=== PATIENT | male | born 1975 | race Caucasian/White ===

== ENCOUNTER 2021-04-17 06:22 | Emergency (ER) | payer OTHER, SELFPAY ==
--- NOTE | ~2021-04-17 | XR_ITS ---
EXAMINATION: XR chest 2V DATE: 04/17/2021 06:47 INDICATION: Chest pain. TECHNIQUE: Frontal and lateral views of the chest were obtained. COMPARISON: Chest 2 views 02/05/2006 FINDINGS: The chest demonstrates clear lungs without pneumonia, pleural effusion, or pneumothorax. Th e heart size is normal. IMPRESSION: 1. No acute cardiopulmonary disease. Reviewed, dictated and finalized at location A. MBLER RUBBER FOOTWEAR
[2021-04-17 06:29] VITALS: BP 168/102; PULSE 58; PULSE 69; RESP 14; RESP 18; O2SAT 100
[2021-04-17 06:30] VITALS: PULSE 54; RESP 11; O2SAT 100
--- NOTE | 2021-04-17 06:33 | ECG_ITS ---
Measurements Intervals [place] Rate: 53 P: 73 [place]: 116 QRS: 45 QRSD: 112 T: 22 QT: 437 QTc: 412 Interpretive Statements SINUS BRADYCARDIA INTRAVENTRICULAR CONDUCTION DELAY BASELINE ARTIFACT- I, II, III, AVR, AVL, AVF BORDERLINE ECG Electronically Signed On 04-17-2021 7:34:08 AIRBORNE SENSOR SPECIALIST by Neno Vivar D.O.
--- NOTE | 2021-04-17 06:34 | ED.ARRPALP ---
HPI - Arrhythmia/Palpitations General Chief Complaint: Arrhythmia/Palpitations Stated Complaint: heart skipping beats Time Seen by Provider: 04/17/21 06:32 Source: patient Mode of arrival: ambulatory Limitations: no limitations History of Present Illness HPI narrative: Patient is a 46-year-old male complaining of palpitations, skipping beats , accompanied by shortness of breath, started 1 week ago but today claims that it is worse. Patient denies any chest pain, abdominal pain, nausea, vomiting, diaphoresis, fever or chills. Related Data Home Medications Medication Instructions Recorded Confirmed diphenhydramine HCl 25 mg tablet 25 mg PO QHS 05/01/20 05/01/20 doxylamine succinate 25 mg tablet 25 mg PO QHS PRN 05/01/20 05/01/20 Allergies Allergy/AdvReac Type Severity Reaction Status Date / Time No Known Allergies Allergy Mild Verified 05/01/20 10:56 Review of Systems Review of Systems: All systems reviewed & are unremarkable except as noted in HPI and below Constitutional: Constitutional: Denies body ache(s), Denies chills, Denies excessive sweating, Denies fatigue, Denies fever(s), Denies headache(s), Denies lethargy, Denies malaise, Denies weakness and Denies weight loss Eyes: Eyes: Denies blurry vision, Denies change in vision and Denies loss of vision ENT: Denies dizziness, Denies ear discharge, Denies headache(s), Denies lip swelling, Denies epistaxis, Denies nasal congestion, Denies neck pain, Denies throat swelling and Denies tongue swelling Cardiovascular: Cardiovascular: Denies chest pain, Denies chest pain at rest, Denies chest pain with activity, Denies diaphoresis, Denies edema, Denies irregular heart rhythm, Denies lightheadedness and Denies dyspnea on exertion Respiratory: Respiratory: Denies chest congestion, Denies cough, Denies hemoptysis and Denies dyspnea on exertion Gastrointestinal: Gastrointestinal: Denies abdominal pain, Denies melena, Denies hematochezia, Denies diarrhea, Denies nausea, Denies vomiting and Denies hematemesis Musculoskeletal: Musculoskeletal: Denies abnormal gait, Denies deformity, Denies joint swelling, Denies limited range of motion, Denies neck pain and Denies numbness Neurologic: Denies Abnormal speech present, Denies abnormal gait, Denies confusion, Denies dizziness, Denies headache(s), Denies focal weakness, Denies loss of vision, Denies numbness, Denies Other visual disturbances, Denies Sensory deficit (Neuro) and Denies weakness Psychiatric: Psychiatric: Denies confusion, Denies depression, Denies auditory hallucinations, Denies homicidal ideation and Denies suicidal ideation Endocrine: Endocrine: Denies cold intolerance, Denies excessive sweating, Denies fatigue, Denies heat intolerance and Denies palpitations Hematologic/Lymphatic: Hematologic/Lymphatic: Denies easy bleeding and Denies easy bruising Allergic/Immunologic: Allergic/Immunologic: Denies lip swelling, Denies throat swelling and Denies tongue swelling PMFSH Family History Family History Father Hypertension Depression Heart disease Mother Depression Sibling Depression Cerebrovascular accident Grandparent Cancer Grandparent Hypertension Depression Social History Social History Smoking status: Never smoker Alcohol intake: never Substance use: never Exam Const: General: cooperative, healthy appearing, comfortable, no acute distress, well developed, alert and awake; No confusion Orientation/consciousness: oriented to person, oriented to place, oriented to time, patient oriented x3 and No confusion Limitations: no limitations HENMT: Head: normal to inspection, normocephalic and atraumatic Ears: hearing grossly normal bilaterally, TM normal on the right and TM normal on the left General nose exam: Normal external nose present, Normal nares present and No nasal discharge pre
[2021-04-17 06:45] LABS: Basophils Percent Auto 0.5 % (0.2-1.2); Eosinophils Absolute Auto 0.5 K/mm3 (0-0.3); Eosinophils Percent Auto 5.9 % (0-4.4); Hematocrit 44.5 % (42.0-52.0); Immature Granulocyte Absolute 0.01 K/mm3 (0.00-0.031); Immature Granulocyte Percent A 0.1 % (0-0.5); Lymphocytes Absolute Auto 3.76 K/mm3 (0.9-3.2); Lymphocytes Percent Auto 43.8 % (18.3-44.2); Mean Corpuscular HGB Conc 33.7 g/dl (32-36); Mean Corpuscular Hemoglobin 29.2 pg (26-34); Mean Corpuscular Volume 86.7 fl (80-100); Mean Platelet Volume 9.5 fl (7.4-10.4); Monocytes Absolute Auto 0.7 K/mm3 (0.1-0.6); Monocytes Percent Auto 8.5 % (2.6-8.5); Neutrophils Absolute Auto 3.5 K/mm3 (1.3-6.7); Neutrophils Percent Auto 41.2 % (45.5-73.1); Platelet Count Result 271 k/mm3 (150-375); Red Blood Count 5.13 M/mm3 (4.6-6.20); Red Cell Distribution Width 12.2 % (11.5-14.5); White Blood Count 8.6 K/mm3 (4.5-10.0)
[2021-04-17] MEDS: ASPIRIN 81 MG CHEWABLE TABLET 324 MG PO (06:47)
[2021-04-17 06:56] LABS: Prothrombin Time 12.6 Seconds (11.1-14.7)
[2021-04-17 06:57] LABS: Partial Thromboplastin Time 29.8 SECONDS (22.3-36.8)
[2021-04-17 07:05] VITALS: PULSE 67; RESP 13; O2SAT 97
[2021-04-17 07:14] LABS: Alanine Aminotransferase 22 U/L (4-50); Albumin Level 5.2 g/dL (3.5-5.1); Alkaline Phosphatase 64 U/L (38-126); Anion Gap 11 mmol/L (8-16); Aspartate Amino Transferase 29 U/L (17-59); Bilirubin,Total 0.8 mg/dL (0.2-1.3); Blood Urea Nitrogen 19 mg/dL (9-20); Calcium 9.9 mg/dL (8.4-10.2); Carbon Dioxide 27 mmol/L (22-30); Chloride 103 mmol/L (98-107); Estimated CRCL calculation 99 ml/min; Estimated Glomerular Filt Rate > 60; Glucose 113 mg/dL (65-110); Lipase 101 U/L (23-300); Potassium 4.6 mmol/L (3.4-5.0); Sodium 141 mmol/L (137-145)
[2021-04-17 07:25] LABS: Troponin I < 0.012 ng/mL (0.000-0.034)
--- NOTE | 2021-04-17 07:28 | PC.NURSE ---
pt noted feeling of palpitations. rhythm change noted on monitor. edp aware.
[2021-04-17 07:48] LABS: D Dimer < 0.27 ug/mL (<0.48)
[2021-04-17 09:05] VITALS: BP 116/82; PULSE 69; RESP 16; O2SAT 98
[2021-04-17 09:58] LABS: Troponin I < 0.012 ng/mL (0.000-0.034)
[2021-04-17 10:35] VITALS: BP 142/95; PULSE 63; RESP 16; O2SAT 99
== END 2021-04-17 10:39 | disposition home or self-care (01) ==
PROVIDERS: Emergency Provider Emergency Medicine; PCP Emergency Medicine
DX: R00.2 Palpitations (principal); R00.1 Bradycardia, unspecified; I45.9 Conduction disorder, unspecified
CPT/HCPCS: 36415; 71046; 80053; 83690; 84443; 84484; 85025; 85380; 85610; 85730; 93005; 99284; A9270

== ENCOUNTER 2022-02-03 19:29 | Emergency (ER) | payer OTHER, SELFPAY ==
[2022-02-03] VITALS (7 sets, daily range): BP systolic 133–159; BP diastolic 84–96; PULSE 52–62; RESP 12–18; TEMP 36.4; O2SAT 97–100
--- NOTE | ~2022-02-03 | CT_ITS ---
EXAMINATION: CT brain wo con DATE: 02/03/2022 20:11 INDICATION: vertigo . TECHNIQUE: Computed tomography (CT) of the head was performed without intravenous contrast. The mA wa s adjusted according to patient size. Iterative reconstruction technique was employed. The dose-lengt h product was 605.33 mGy-cm. COMPARISON: None FINDINGS: No acute intracranial hemorrhage or extra-axial fluid collection. No hydrocephalus, mass, or herniation. No acute ischemic infarct. Unremarkable dural venous sinus attenuation. No acute osseous abnormality. Mucosal thickening in the right sphenoid and frontal sinuses. More pronounced mucosal thickening with aerated secretions in the ethmoid air cells. The remaining aerated spaces are clear. IMPRESSION: No acute intracranial process. Paranasal sinus findings may indicate acute sinusitis in the appropria te conical context. Reviewed, dictated and finalized at location K. T BASIC STUDIES TEACHER IMPRESSION: No acute intracranial process. Paranasal sinus findings may indicate acute sinu sitis in the appropriate conical context.
--- NOTE | 2022-02-03 19:46 | ECG_ITS ---
Measurements Intervals [place] Rate: 56 P: 61 [place]: 150 QRS: 28 QRSD: 112 T: 19 QT: 438 QTc: 423 Interpretive Statements SINUS BRADYCARDIA MODERATE INTRAVENTRICULAR CONDUCTION DELAY [110+ ms QRS DURATION] COMPARED TO ECG 04/17/2021 06:32:07 NO SIGNIFICANT CHANGES Electronically Signed On 02-04-2022 11:15:34 PLANNING ANALYST by Isabela Pagan M.D.
--- NOTE | 2022-02-03 19:59 | ED.DIZZY ---
HPI - Dizziness General Chief Complaint: Dizziness Stated Complaint: dizziness Time Seen by Provider: 02/03/22 19:47 History of Present Illness HPI Narrative: 47-year-old male presenting the emergency department for evaluation of vertigo and dizziness. 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 Patient states afterwards he began having severe vertigo symptoms. Patient states the symptoms are worsened when turning his head but does improve when he closes his eyes. Patient denies any prior history of CVA. Patient states he is also been having increased difficulty with sleeping due to anxiety. Patient states he is going to schedule follow-up with his primary care physician for the anxiety. Patient denies any associated numbness or weakness. Patient does have associated nausea. Related Data Home Medications Medication Instructions Recorded Confirmed diphenhydramine HCl 25 mg tablet 25 mg PO QHS 05/01/20 05/01/20 (Allergy (diphenhydramine)) doxylamine succinate 25 mg tablet 25 mg PO QHS PRN 05/01/20 05/01/20 Allergies Allergy/AdvReac Type Severity Reaction Status Date / Time No Known Allergies Allergy Mild Verified 02/03/22 19:33 Review of Systems Review of Systems: CONSTITUTIONAL: Denies fever, chills, or sweats. EYES: Denies visual changes, redness, or discharge. ENT: Denies rhinorrhea, congestion, sore throat, or otalgia. CARDIOVASCULAR: Denies chest pain, palpitations, or edema. RESPIRATORY: Denies cough or dyspnea. GASTROINTESTINAL: Denies abdominal pain, nausea, vomiting, or diarrhea. GENITOURINARY: Denies dysuria or hematuria. SKIN: Denies rash or itching. MUSCULOSKELETAL: Denies back pain, joint pain, or myalgia. NEUROLOGIC: Vertigo, see HPI PMFSH Family History Family History Father Hypertension Depression Heart disease Mother Depression Sibling Depression Cerebrovascular accident Grandparent Cancer Grandparent Hypertension Depression Social History Social History Smoking status: Never smoker Alcohol intake: never Substance use: never Exam Narrative: APPEARANCE: Well appearing, no pain, no distress, well-nourished. HEAD: normocephalic, atraumatic. EYES: PERRLA/EOMI, conjunctivae clear. NOSE: Normal no drainage EARS:TMS clear with good light reflex. THROAT: Pharynx clear, no exudate. NECK: Supple. No adenopathy, no masses. RESPIRATORY: Airway patent, respirations nonlabored. Clear to auscultation bilaterally, no rales, rhonchi, wheezing. CARDIOVASCULAR: Regular rate and rhythm without murmurs rubs or gallops. ABDOMINAL: Soft, nontender, nondistended, normal bowel sounds MUSCULOSKELETAL: Moves all extremities. Strength/ROM intact, No edema, No calf tenderness. NEURO: Alert. Cranial nerves II through XII intact. Grossly intact. Normal strength reflexes. Vertigo was induced when turning the patient's head. Symptoms are improved when closing his eyes. SKIN: Warm, dry. Normal Color Course Course Emergency Course: Patient did have a negative head CT. Patient did feel improved with meclizine. Patient was provided meclizine and for the next with his primary care physician. Patient was also encouraged to follow-up with neurology. Vital Signs Vital signs: Vital Signs Temperature 97.6 F 02/03/22 19:30 Pulse Rate 62 02/03/22 19:30 Respiratory Rate 18 02/03/22 19:30 Blood Pressure 155/88 H 02/03/22 19:30 Pulse Oximetry 100 02/03/22 19:30 Oxygen Delivery Room Air 02/03/22 19:30 Temperature 97.6 F 02/03/22 19:30 Pulse Rate 58 L 02/03/22 21:31 Respiratory Rate 15 02/03/22 21:31 Blood Pressure 138/88 02/03/22 21:31 Pulse Oximetry 97 02/03/22 21:31 Oxygen Delivery Room Air 02/03/22 19:30 MDM - Dizziness Lab Data
[2022-02-03 20:02] LABS: Basophils Percent Auto 0.6 % (0.2-1.2); Eosinophils Absolute Auto 0.3 K/mm3 (0-0.3); Eosinophils Percent Auto 4.6 % (0-4.4); Hematocrit 40.7 % (42.0-52.0); Hemoglobin 13.9 g/dL (14.0-18.0); Immature Granulocyte Absolute 0.01 K/mm3 (0.00-0.031); Immature Granulocyte Percent A 0.1 % (0-0.5); Lymphocytes Absolute Auto 3.34 K/mm3 (0.9-3.2); Mean Corpuscular HGB Conc 34.2 g/dl (32-36); Mean Corpuscular Hemoglobin 29.4 pg (26-34); Mean Platelet Volume 9.6 fl (7.4-10.4); Monocytes Absolute Auto 0.6 K/mm3 (0.1-0.6); Monocytes Percent Auto 8.8 % (2.6-8.5); Neutrophils Absolute Auto 2.5 K/mm3 (1.3-6.7); Neutrophils Percent Auto 36.9 % (45.5-73.1); Platelet Count Result 252 k/mm3 (150-375); Red Blood Count 4.73 M/mm3 (4.6-6.20); Red Cell Distribution Width 12.5 % (11.5-14.5); White Blood Count 6.8 K/mm3 (4.5-10.0)
[2022-02-03 20:14] LABS: Alanine Aminotransferase 22 U/L (6-50); Albumin Level 4.8 g/dL (3.5-5.1); Alkaline Phosphatase 58 U/L (38-126); Anion Gap 10 mmol/L (8-16); Aspartate Amino Transferase 29 U/L (17-59); Bilirubin,Total 0.5 mg/dL (0.2-1.3); Blood Urea Nitrogen 25 mg/dL (9-20); Calcium 9.1 mg/dL (8.4-10.2); Carbon Dioxide 22 mmol/L (22-30); Chloride 108 mmol/L (98-107); Estimated CRCL calculation 98 ml/min; Estimated Glomerular Filt Rate > 60; Glucose 128 mg/dL (65-110); Potassium 3.7 mmol/L (3.4-5.0); Sodium 140 mmol/L (137-145)
[2022-02-03] MEDS: SODIUM CHLORIDE 0.9% IV 1,000 ML 999 ML IV CONT (20:21)
[2022-02-03] MEDS: MECLIZINE HCL 25 MG TABLET PO (20:21)
[2022-02-03] MEDS: LORazepam INJ (*CRX) 2 MG/ML VIAL 1 MG IV PUSH (21:35)
== END 2022-02-03 21:45 | disposition home or self-care (01) ==
PROVIDERS: Emergency Medicine; Emergency Provider Emergency Medicine; PCP Emergency Medicine
DX: R42 Dizziness and giddiness (principal); R00.1 Bradycardia, unspecified; I45.9 Conduction disorder, unspecified
CPT/HCPCS: 36415; 70450; 80053; 85025; 93005; 96361; 96374; 99284; A9270; J2060; J7030

== ENCOUNTER 2022-05-03 08:05 | Emergency (ER) | payer OTHER, SELFPAY ==
[2022-05-03] VITALS (16 sets, daily range): BP systolic 104–152; BP diastolic 73–96; PULSE 57–107; RESP 12–19; TEMP 36.3; O2SAT 92–100
--- NOTE | ~2022-05-03 | XR_ITS ---
EXAMINATION: XR chest 2V DATE: 05/03/2022 13:13 INDICATION: Left chest pain. TECHNIQUE: Frontal and lateral views of the chest were obtained. COMPARISON: Chest 2 views 04/17/2021 FINDINGS: There is no pneumonia, pleural effusion, or pneumothorax. The heart size is normal. IMPRESSION: 1. No acute cardiopulmonary disease. Reviewed, dictated and finalized at location A. PAPER DELIVERY COUNSELOR
--- NOTE | 2022-05-03 08:07 | ECG_ITS ---
Measurements Intervals [place] Rate: 55 P: 68 [place]: 148 QRS: 24 QRSD: 113 T: 24 QT: 435 QTc: 418 Interpretive Statements SINUS BRADYCARDIA INTRAVENTRICULAR CONDUCTION DELAY BASELINE ARTIFACT- I, II, III, AVR, AVL, AVF, V1 BORDERLINE ECG COMPARED TO ECG 02/03/2022 20:00:56 NO SIGNIFICANT CHANGES Electronically Signed On 05-03-2022 8:28:02 RN SURGICAL PCU by Neno Vivar D.O.
--- NOTE | 2022-05-03 08:20 | ED.GENADULT ---
HPI - General Adult General Chief complaint: Chest Pain Stated complaint: cp Time Seen by Provider: 05/03/22 08:06 History of Present Illness HPI narrative: 47-year-old male with history of heart palpitations and anxiety presenting to the emergency department for evaluation of left-sided chest wall pain. Patient states he has not been sleeping well over the last few days and has been very active at night. Patient states he was having some anxiety this morning and then noticed that he was having some left-sided chest pain. Patient describes a sharp left-sided chest pain that is worsened with deep inspiration. Patient states he has had heart palpitations previously but has never had any work-up by his primary care physician. Patient does not think he is ever had a stress test. Patient denies any prior history PE DVT stroke or VA. Related Data Home Medications Medication Instructions Recorded Confirmed diphenhydramine HCl 25 mg tablet 25 mg PO QHS 05/01/20 05/01/20 (Allergy (diphenhydramine)) doxylamine succinate 25 mg tablet 25 mg PO QHS PRN 05/01/20 05/01/20 Allergies Allergy/AdvReac Type Severity Reaction Status Date / Time No Known Allergies Allergy Mild Verified 05/03/22 08:21 Review of Systems Review of Systems: CONSTITUTIONAL: Denies fever, chills, or sweats. EYES: Denies visual changes, redness, or discharge. ENT: Denies rhinorrhea, congestion, sore throat, or otalgia. CARDIOVASCULAR: See HPI RESPIRATORY: Denies cough or dyspnea. GASTROINTESTINAL: Denies abdominal pain, nausea, vomiting, or diarrhea. GENITOURINARY: Denies dysuria or hematuria. SKIN: Denies rash or itching. MUSCULOSKELETAL: Denies back pain, joint pain, or myalgia. NEUROLOGIC: Denies headache, numbness, or weakness. All systems reviewed & are unremarkable except as noted in HPI and below PMFSH Family History Family History Father Hypertension Depression Heart disease Mother Depression Sibling Depression Cerebrovascular accident Grandparent Cancer Grandparent Hypertension Depression Social History Social History Smoking status: Never smoker Alcohol intake: never Substance use: never Exam Narrative: APPEARANCE: Well appearing, no pain, no distress, well-nourished. HEAD: normocephalic, atraumatic. EYES: PERRLA/EOMI, conjunctivae clear. THROAT: Pharynx clear, no exudate. NECK: Supple. No adenopathy, no masses. RESPIRATORY: Airway patent, respirations nonlabored. Clear to auscultation bilaterally, no rales, rhonchi, wheezing. CARDIOVASCULAR: Regular rate and rhythm without murmurs rubs or gallops. ABDOMINAL: Soft, nontender, nondistended, normal bowel sounds MUSCULOSKELETAL: Moves all extremities. Strength/ROM intact, No edema, No calf tenderness. NEURO: Alert. Cranial nerves II through XII intact. Grossly intact SKIN: Warm, dry. Normal Color PSYCHIATRIC: Normal affect/mood. Course Course Emergency Course: 47-year-old male with left-sided chest pain. EKG on arrival showed normal sinus rhythm with moderate interventricular conduction delay similar to his previous. No ST elevations no concern for acute STEMI. Patient was treated with aspirin and nitro. Patient was also anxious prior to having onset of the chest pain and so he was willing to try some Ativan for the anxiety as well. Patient and family were updated on the plan for cardiac/ACS rule out including serial troponins, chest x-ray. D-dimer was also ordered to rule out PE due to the sharp pleuritic nature of his chest pain. Patient updated the results of his work-up. Patient was afebrile with no leukocytosis. Patient hemoglobin is stable patient had a normal electrolytes and negative serial troponins. Patient's chest x-ray no acute cardio pulmonary abnormality. I had a lengthy discussion with both the patient and his were regarding the pat
[2022-05-03 08:35] LABS: Basophils Percent Auto 0.6 % (0.2-1.2); Eosinophils Absolute Auto 0.3 K/mm3 (0-0.3); Eosinophils Percent Auto 3.9 % (0-4.4); Immature Granulocyte Absolute 0.02 K/mm3 (0.00-0.031); Immature Granulocyte Percent A 0.3 % (0-0.5); Lymphocytes Percent Auto 44.5 % (18.3-44.2); Mean Corpuscular HGB Conc 34.1 g/dl (32-36); Mean Corpuscular Hemoglobin 29.5 pg (26-34); Mean Corpuscular Volume 86.6 fl (80-100); Mean Platelet Volume 9.4 fl (7.4-10.4); Monocytes Absolute Auto 0.6 K/mm3 (0.1-0.6); Neutrophils Percent Auto 42.7 % (45.5-73.1); Platelet Count Result 281 k/mm3 (150-375); Red Blood Count 5.08 M/mm3 (4.6-6.20); Red Cell Distribution Width 12.8 % (11.5-14.5)
[2022-05-03] MEDS: ASPIRIN 81 MG CHEWABLE TABLET 324 MG PO (08:37)
[2022-05-03] MEDS: NITROGLYCERIN SL 0.4 MG TABLET SUBLINGUAL (08:37)
--- NOTE | 2022-05-03 08:38 | PC.NURSE ---
0.4 mg SL nitro given. 133/96, 07/10
[2022-05-03 08:52] LABS: Alanine Aminotransferase 23 U/L (6-50); Albumin Level 4.9 g/dL (3.5-5.1); Alkaline Phosphatase 61 U/L (38-126); Anion Gap 7 mmol/L (8-16); Aspartate Amino Transferase 24 U/L (17-59); Bilirubin,Total 0.6 mg/dL (0.2-1.3); Blood Urea Nitrogen 26 mg/dL (9-20); Calcium 9.3 mg/dL (8.4-10.2); Carbon Dioxide 25 mmol/L (22-30); Chloride 103 mmol/L (98-107); Estimated CRCL calculation 109 ml/min; Estimated Glomerular Filt Rate > 60; Glucose 102 mg/dL (65-110); Potassium 4.2 mmol/L (3.4-5.0); Sodium 135 mmol/L (137-145)
--- NOTE | 2022-05-03 08:57 | PC.NURSE ---
After initial Nitro dose pt reports he has not experienced the sharp chest pain. Bp 116/83
[2022-05-03 09:01] LABS: INR 1.1; Prothrombin Time 13.5 Seconds (11.1-14.7)
[2022-05-03 09:03] LABS: NT Pro B Type Natriuretic Pept < 20 pg/mL (19.9-100); Troponin I < 0.012 ng/mL (0.000-0.034)
[2022-05-03 09:10] LABS: D Dimer 0.28 ug/mL (<0.48)
[2022-05-03 11:39] LABS: Troponin I < 0.012 ng/mL (0.000-0.034)
== END 2022-05-03 13:54 | disposition home or self-care (01) ==
PROVIDERS: Emergency Provider Emergency Medicine; PCP Emergency Medicine
DX: R07.9 Chest pain, unspecified (principal); R00.2 Palpitations; F41.9 Anxiety disorder, unspecified
CPT/HCPCS: 36415; 71046; 80053; 83880; 84484; 85025; 85380; 85610; 85730; 93005; 96374; 99284; A9270

== ENCOUNTER 2022-12-05 10:56 | Emergency (ER) | payer OTHER, SELFPAY ==
--- NOTE | 2022-12-05 11:05 | PC.NURSE ---
Patient states he called his PCP and was going to his office. patient states im not in enough pain to sit here forever .
== END 2022-12-05 11:05 | disposition left against medical advice (07) ==
LOC: ANHED 11:18
PROVIDERS: PCP Emergency Medicine
DX: Z53.21 Procedure and treatment not carried out due to patient leaving prior to being seen by health care provider (principal)
CPT/HCPCS: 99199

== ENCOUNTER 2024-03-02 16:25 | Emergency (ER) | payer OTHER, SELFPAY ==
[2024-03-02 17:34] VITALS: BP 143/88; PULSE 88; RESP 16; TEMP 37.4; O2SAT 99
--- NOTE | 2024-03-02 17:38 | ED_ITS ---
HPI - URI/Sore Throat General Chief Complaint: Upper Respiratory Infection Stated Complaint: possible COVID Time Seen by Provider: 03/02/24 17:39 Source: patient, RN notes reviewed and old records reviewed Mode of arrival: ambulatory Limitations: no limitations History of Present Illness HPI Narrative: 49-year-old male who presents to [facility] complaints body aches, skin 'sensitive to touch', burning sensation in his lungs, headache, voice raspy, low grade fevers which started yesterday. Patient reports that step son is ill. Patient reports that he took Advil last night,has not taken any OTC medications today.. Patient reports no nausea vomiting or diarrhea. MD elicited complaint: cough and other (body aches, headache,low grade fever) Pertinent past history: sinusitis Onset (ago): day(s) (03/01/2024) Pain scale (0-10): 4 Able to tolerate fluids by mouth: Yes Treatments prior to arrival: ibuprofen (last dose last night) Related Data Home Medications ?Medication ?Instructions ?Recorded ?Confirmed ?Last Taken ?Type doxylamine succinate 25 mg tablet 25 mg PO QHS PRN 05/01/20 07/19/22 Unknown History Allergies Allergy/AdvReac Type Severity Reaction Status Date / Time No Known Allergies Allergy Mild Verified 12/05/22 10:57 Review of Systems Review of Systems: CONSTITUTIONAL:Reports malaise, chills, sweats, or fever. EYES: Denies visual changes, redness, or discharge. ENT: Reports rhinorrhea, congestion,no sinus pain, no otalgia and no sore throat. CARDIOVASCULAR: Denies chest pain, palpitations, or edema. RESPIRATORY: Reports cough.? Denies dyspnea. GASTROINTESTINAL: Denies abdominal pain, nausea, vomiting, diarrhea SKIN: Denies rash or itching. MUSCULOSKELETAL: Reports myalgia. NEUROLOGIC: reports headache. All systems reviewed & are unremarkable except as noted in HPI and below PMFSH Past Medical History Medical History (Updated 03/06/24 @ 16:02 by Tammie Rodriguez NP) Insomnia Anxiety Chronic sinusitis Surgical History Surgical History (Updated 03/06/24 @ 15:59 by Tammie Rodriguez NP) H/O bilateral inguinal hernia repair Family History Family History Father Hypertension Depression Heart disease Mother Depression Sibling Depression Cerebrovascular accident Grandparent Cancer Grandparent Hypertension Depression Social History Social History (Updated 07/19/22 @ 08:19 by Hyun Chan [facility]) Smoking status: Never smoker Alcohol intake: never Substance use: never Lack of Transportation: No Current Housing: I Have Housing Concerned About Future Housing: No Difficulty Paying Gas/Electric Bills: No Difficulty Paying for Meds: No Currently Unemployed: No Education: Master's Degree or Higher Difficulty w/ Childcare or Family Care: No Comments At time of signature, agree with nursing past medical, surgical, social and family history. There is no relevant family history pertinent to the presenting complaint Exam Narrative: GENERAL: Well-appearing, well-nourished, and in no acute distress. HEAD: Normocephalic EYES: PERRLA, conjunctivae clear ENT: Nares clear, turbinates edematous and erythematous, clear discharge. Mucous membranes moist. TM pearly higgins with dull light reflex bilaterally; no tragal tenderness. Oropharynx erythematous without lesions. Tonsils not enlarged and without exudate, no drooling, no hoarseness, no trismus, uvula midline.post nasal drainage NECK: Supple. No lymphadenopathy CHEST: Clear to auscultation, breath sounds equal. No wheezing, rhonchi, rales, or stridor. No respiratory distress, speaks in full sentences. dry cough SAO2 99% on room air HEART: Regular rate and rhythm. No murmur heard. SKIN: Warm, dry, no rash. NEURO: Alert and oriented x3. PSYCH: Normal mood and affect Course Course Emergency Course: Patient is aware of diagnosis, understands and agrees to treatment plan.? Anticipatory guidance given.? Patient agrees to follow-up as directed and is aware of reasons to seek care at the emergency department. Portions of this record may have been created with voice recognition software Level of Care: [facility] Visit Vital Signs Vital signs: Vital Signs Temperature 37.4 C 03/02/24 17:34 Pulse Rate 88 03/02/24 17:34 Respiratory Rate 16 03/02/24 17:34 Blood Pressure 143/88 H 03/02/24 17:34 Pulse Oximetry 99 03/02/24 17:34 Oxygen Delivery Room Air 03/02/24 17:34 Temperature 37.4 C 12/31/24 17:34 Pulse Rate 88 03/02/24 17:34 Respiratory Rate 16 03/02/24 17:34 Blood Pressure 143/88 H 03/02/24 17:34 Pulse Oximetry 99 03/02/24 17:34 Oxygen Delivery Room Air 03/02/24 17:34 Reviewed MDM - URI/Sore Throat MDM Narrative Medical decision making narrative: Differential diagnosis considered: Pierre virus, strep pharyngitis, allergic rhinitis, upper respiratory tract infection, sinusitis, rhinosinusitis, nasopharyngitis. viral pharyngitis, otitis media, otitis externa, pneumonia, bronchitis, viral cough syndrome, viral syndrome, and influenza.? Exam findings show no acute concerns or changes; patient is non-toxic appearing and is in no distress.? Patient is appropriate for outpatient treatment and follow-up. Differential Diagnosis Differential diagnosis: Likely upper respiratory infection, sinusitis, viral infection, influenza and other (COVID) Lab Data Attestation: I reviewed the patient's lab results. Lab results narrative: Influenza A negative, Influenza B negative, COVID antigen negative Labs: Lab Results 03/02/24 Range/Units 18:05 POC Influenza A Ag Negative (Negative) POC Influenza B Ag Negative (Negative) POC SARS CoV-2 Ag Negative (Negative) reviewed Critical Care Time Critical Care Time Critical Care Time: No Discharge Plan Discharge Clinical Impression: Upper respiratory infection Qualifiers: URI type: unspecified URI Qualified Code(s): J06.9 - Acute upper respiratory infection, unspecified Patient Disposition: Home, Self-Care Condition: Stable Instructions: Upper Respiratory Infection (ED) Additional Instructions: Increase fluids especially juices and water [id number] cough and cold medicine of your choice for your symptoms Tylenol or ibuprofen for any fever pain continue use nasal saline and nasal sprays as ordered Zyrtec Claritin or Radha daily heat to the face 20-30 minutes 4-6 times a day for pain Salt water gargles, throat lozenges or throat sprays as desired recommend you retest for COVID tomorrow with home test If your symptoms persist, change or worsen significantly before you can contact your personal physician then please, without delay, go to the emergency department for further evaluation. Follow-up with PCP in 7-10 days or sooner if needed Follow up with PCP soon in regards to your blood pressure which is elevated above threshold for referral. Blood pressure above 120/80 may indicate pre- hypertension. 143/88 Patient Language: [place] Islander Prescriptions: No Action prednisone 10 mg tablet 10 mg PO DAILY Qty: 7 0RF Rx Instructions: Take in am, days 1-7 prednisone 5 mg tablet 5 mg PO DAILY Qty: 7 0RF Rx Instructions: Days 8-14, take in am budesonide 0.25 mg/2 mL suspension for nebulization 0.25 mg irrigation BID Qty: 120 0RF Rx Instructions: 2ml/one ampule in each irrigation bottle, irrigate with 2 bottle per day doxylamine succinate 25 mg tablet 25 mg PO QHS PRN fluticasone propionate [Flonase Allergy Relief] 50 mcg/actuation spray,suspension 2 spray intranasal BID Qty: 16 0RF Rx Instructions: administer into each nostril Follow-up/Referrals: Issac Roman MD [Primary Care Provider] - Time of Disposition: 17:54 Quality Betsy Coma Scale Eyes: Open Verbal: Oriented and Alert Motor: Follows Commands Betsy Coma Total Score: 15
[2024-03-02 18:07] LABS: EDCOVIDSCREEN Negative (Negative); EDINFLUASCREEN Negative (Negative); EDINFLUBSCREEN Negative (Negative)
== END 2024-03-02 18:05 | disposition home or self-care (01) ==
PROVIDERS: Emergency Provider Registered Nurse; PCP Emergency Medicine
DX: J06.9 Acute upper respiratory infection, unspecified (principal); Z20.822 Contact with and (suspected) exposure to COVID-19
CPT/HCPCS: 87426; 87804; 99212; G0463

== ENCOUNTER 2024-04-28 09:04 | Emergency (ER) | payer OTHER, SELFPAY ==
--- NOTE | ~2024-04-28 | XR_ITS ---
EXAMINATION: XR chest 2V DATE: 04/28/2024 10:01 INDICATION: Right-sided chest pain TECHNIQUE: PA and lateral views of the chest were obtained. COMPARISON: Chest radiograph dated 05/03/22 FINDINGS: The lungs remain clear with no focal airspace opacities, pulmonary edema, pleural effusion or pneumot horax. The cardiomediastinal silhouette is normal. Mild thoracic spondylosis with minimal likely phys iologic anterior wedging at T11 and T12. IMPRESSION: 1. No acute cardiopulmonary disease. Reviewed, dictated and finalized at location B. PROGRAMMER
[2024-04-28 09:04] VITALS: BP 147/92; PULSE 82; RESP 16; TEMP 36.4; O2SAT 98
--- NOTE | 2024-04-28 09:07 | ECG_ITS ---
Test Date: 2024-04-28 09:11:09 Measurements Intervals [place] Rate: 63 P: 66 [place]: 152 QRS: 53 QRSD: 106 T: 28 QT: 414 QTc: 426 Interpretive Statements SINUS RHYTHM NONSPECIFIC T-WAVE ABNORMALITY- INFERIOR LEADS BASELINE ARTIFACT- I, II, III, AVR, AVL, AVF, V5 BORDERLINE ECG No previous ECG available for comparison Electronically Signed On 04-28-2024 09:22:47 HEAD ATHLETIC TRAINER/STRENGTH COACH by Neno Vivar D.O.
[2024-04-28 09:22] LABS: Basophils Percent Auto 0.7 % (0.2-1.2); Eosinophils Absolute Auto 0.4 K/mm3 (0-0.3); Eosinophils Percent Auto 5.7 % (0-4.4); Hematocrit 42.2 % (42.0-52.0); Hemoglobin 14.1 g/dL (14.0-18.0); Immature Granulocyte Absolute 0.01 K/mm3 (0.00-0.031); Immature Granulocyte Percent A 0.2 % (0-0.5); Lymphocytes Absolute Auto 2.43 K/mm3 (0.9-3.2); Lymphocytes Percent Auto 39.8 % (18.3-44.2); Mean Corpuscular HGB Conc 33.4 g/dl (32-36); Mean Corpuscular Hemoglobin 29.3 pg (26-34); Mean Corpuscular Volume 87.7 fl (80-100); Mean Platelet Volume 9.1 fl (7.4-10.4); Monocytes Absolute Auto 0.5 K/mm3 (0.1-0.6); Monocytes Percent Auto 7.7 % (2.6-8.5); Neutrophils Absolute Auto 2.8 K/mm3 (1.3-6.7); Neutrophils Percent Auto 45.9 % (45.5-73.1); Platelet Count Result 255 k/mm3 (150-375); Red Blood Count 4.81 M/mm3 (4.6-6.20); Red Cell Distribution Width 12.7 % (11.5-14.5); White Blood Count 6.1 K/mm3 (4.5-10.0)
[2024-04-28 09:33] LABS: Alanine Aminotransferase 25 U/L (6-50); Albumin Level 4.6 g/dL (3.5-5.1); Alkaline Phosphatase 54 U/L (38-126); Anion Gap 9 mmol/L (4-12); Aspartate Amino Transferase 23 U/L (17-59); Bilirubin,Total 0.8 mg/dL (0.2-1.3); Blood Urea Nitrogen 24 mg/dL (9-20); Calcium 9.4 mg/dL (8.4-10.2); Carbon Dioxide 27 mmol/L (22-30); Chloride 105 mmol/L (98-107); Estimated CRCL calculation 95 ml/min; Estimated Glomerular Filt Rate > 60; Glucose 93 mg/dL (65-110); Lipase 102 U/L (23-300); Potassium 4.4 mmol/L (3.4-5.0); Prothrombin Time 13.7 Seconds (11.1-14.7); Sodium 141 mmol/L (137-145)
[2024-04-28 09:34] LABS: Partial Thromboplastin Time 32.8 Seconds (22.3-36.8)
[2024-04-28 09:45] LABS: Troponin I < 0.012 ng/mL (0.000-0.034)
--- OUTSIDE RECORDS SUMMARY | 2024-04-28 09:47 | XMS_ITS | Continuity of Care Document ---
Author Organization [facility] Address [address] [facility] [place] [address] Phone Care Team Providers Care Dag Sprayer Name Role Phone Issac Roman MD Unavailable Unavailable Allergies, Adverse Reactions, Alerts Substance Reaction Status Criticality No Known Allergies Active No Inform ation Medications Medication Instructions Dosage Effective Dates (start - stop) Status Comments Norvasc 5 mg tablet take 1 tablet by ora l route every day 5 MG - Active Procedures Procedure Date OFFICE/OUTPATIENT VISIT, EST PREV VISIT, EST, AGE 40-64 OFFICE/OUTPATIENT VISIT, EST PREV VISIT, EST, AGE 40-64 OFFICE/OUTPATIENT VISIT, EST OFFICE/OUTPATIENT VISIT, EST OFFICE/OUTPATIENT VISIT, EST PREV VISIT, EST, AGE 40-64 OFFICE/OUTPATIENT VISIT, EST OFFICE/OUTPATIENT VISIT, EST PREV VISIT, NEW, AGE 40-64 Advance Directives Directive Yes / No Effective Date File Name No Information Encounters Encounter Description Practice Location Reason(s) For Visit Diagnoses Date Provider Providers Copied on Encounter OFFICE/OUTPA TIENT VISIT, EST [facility], [facility] [employer] [facility] [place], [place], [id number], tel:[phone] [facility] HTN (chief complaint) Essential (primary) hypertension 5 Abel Davenport. [address] [employer] [facility] [place], [id number] , [place]. tel:[phone] PREV VISIT, EST, AGE 40-64 [facility], [address], [place], [place], [address], [place] tel:[phone] [facility] physical (chief complaint) Encounter for general adult medical exam w abnormal findingsEssential (primary) hypertensionHypergl ycemiaObstructive sleep apnea hypopneaChronic sinusitis Fe 5 Abel Montemayor [address], [place], [place], [address] , [place]. [phone] PREV VISIT, EST, AGE 40-64 [facility], [address], [place], [place], [address], [place] tel:[phone] [facility] anxiety1 (chief complaint) Encounter for general adult medical examination without abnormal findings 3 Abel Montemayor [address], [place], [place], [address] , [place]. tel:[phone] OFFICE/OUTPA TIENT VISIT, EST [facility], [address], [place], [place], [address], [place] tel:[phone] [facility] abdominal pain1 (chief complaint) insomnia1 (chief complaint) Generalized abdominal painGeneralized Anxiety DisorderPrimary insomnia 3 Abel Montemayor [address], [place], [place], [address] , [place]. tel:[phone] OFFICE/OUTPA TIENT VISIT, EST [facility], [address], [place], [place], [address], [place] tel:[phone] [facility] anemia1 (chief complaint) glucose (chief complaint) chest pain1 (chief complaint) insomnia1 (chief complaint) HyperglycemiaAnemia Generalized Anxiety DisorderPrimary insomniaPalpitation s 3 Abel Montemayor [address], [place], [place], [address] , [place]. tel:[phone] OFFICE/OUTPA TIENT VISIT, EST [facility], [address], [place], [place], [address], [place] tel:[phone] [facility] insomnia1 (chief complaint) anxiety1 (chief complaint) anemia1 (chief complaint) Generalized Anxiety DisorderPrimary insomniaEncounter for screening for malignant neoplasm of colonAnemiaHypergly cemia 3 Abel Montemayor [address], [place], [place], [address] , . tel:[phone] PREV VISIT, EST, AGE 40-64 [facility], [address] [place], [address], [place] [phone] [facility] physical (chief complaint) Encounter for general adult medical examination without abnormal findings 2 Abel Montemayor [address], [place], [place], [address] , [place]. tel:[phone] OFFICE/OUTPA TIENT VISIT, [facility], [address] [place], [address], [place] tel:[phone] [facility] sick (chief complaint) HTN (chief complaint) insomnia1 (chief complaint) anxiety1 (chief complaint) InsomniaEssential (primary) hypertensionViral infectionGeneralize d Anxiety DisorderFatigue 1 Abel Montemayor [address], [place], [place], [address] , [place]. tel:[phone] OFFICE/OUTPA TIENT VISIT, EST [facility], [address] [place], [address], [place] tel:[phone] [facility] insomnia1 (chief complaint) glucose1 (chief complaint) allergy1 (chief complaint) anxiety1 (chief complaint) InsomniaGeneralized Anxiety DisorderHyperglycem iaOther allergy status other than to biological substance 1 Abel Montemayor [address], [place], [place], [address] , [place]. tel:[phone] PREV VISIT, NEW, AGE 40-64 [facility], [address] [place], [address], [place] tel:[phone] [facility] physical (chief complaint) Encntr for general adult medical exam w/o abnormal findings May-2 1 Abel Davenport. [address], [place], [place], [address] , [place]. tel:[phone] Family History Family Member Type Diagnosis Age At Onset Sister Problem anxiety Father Problem Coronary artery disease 50 Brother Problem Hypertension Mother Problem anxiety Father Problem Hypertension Mother Problem Depression Payers Payer name Insurance type Covered green party ID Authoriza tion(s) No Information Social History Type Description Quantity Date Captured Comments Alcohol Use Details No Caffeine Use Details Unknown Tobacco Use Status Current non-smoker Smoking Status Never smoker Sex Male Vital Signs Date / Time: Height Weight BMI Pulse Rate Blood Pressure Temperature Respiratory Rate Body Surface Area Head Circumference BMI percentile Pulse Ox Inhaled Ox 5:30 PM 72.00 in 179.00 lbs 24.2 8 kg/m eter (2) 58 /min 156/100 mm[Hg] 97.7 F 16 /min Chief Complaint And Reason For Visit From encounter dated '04/27/2024 17:30'. HTN (chief complaint). Description: Pt has intermittent HTN Pt denies any chest pain pt states thathis bp is around 150/90 at home Pt got a new BP cuff Pt feels occasional tinnitus with headache when his bp is around 150/90 Pt denies any chest pain. Pt denies any vision issue. Pt denies any palpitation Pt denies any sob Plan Of Treatment Date Type Action Status Referral Ordered: Otolaryngology (related to Hypertrophy of nasal turbinates) ordered Referral Ordered: Referrals: Otolaryngology. Evaluate and treat ordered Referral Ordered: CT ABD&PELV 1+ SECTION/REGNS ordered Referral Ordered: COLONOSCOPY AND BIOPSY ordered Referral Ordered: SLEEP STUDY, ATTENDED ordered History Of Present Illness Encounter Date Complaint History Of Prese nt Illness HTN Pt has intermitt ent HTN Pt denies any chest pain pt states that his bp is around 150/90 at home Pt got a new BP cuff Pt feels occasional tinnitus with headache when his bp is around 150/90 Pt denies any chest pain. Pt denies any vision issue. Pt denies any palpitation Pt denies any sob physical Pt needs annual physical Pt is concerned about his BP. pt states that he has been checking his bp at home and is around 140/90. Pt denies any chest pain or headache. Pt has chronic sinus congestion Pt has history of deviated nasal septum. Pt saw ENT 2022 and he did sinus Ct and he suppose to have sinus surgery with turbinate reduction but he never did Pt also snores and he feels fatigue and he wants to do sleep study. anxiety1 Pt needs annual physical. pt has history of insomnia but he has weaned off all sleeping aid on his own and he is doing ok He does have anxiety with intermittent flare up. Pt states that his insomnia is worse when he has anxiety. Pt denies any snoring Pt states that he has a big presentation next week and he know that he is going to get grilled by his boss and he has been feeling very anxious lately. He has been having insomnia as well along with worsening anxiety. Pt wants some anxiety med to use temporarily to help him with sleep, especially the night before his presentation .Pt denies any depression Pt denies any other complaints .his abdominal pain completely resolved. insomnia1 Pt no longer has anxiety or insomnia and he has not been taking sleeping aid. Pt also never tried SSRi and he is doing ok now. Pt denies any suicidal or homicidal thought Pt denies any crying spells Pt also never did sleep study He does not feel that he has sleep apnea abdominal pain1 Pt c/o acute ons et of burning pain around periumbilical area with left lower flank area as well since this morning Pt denies any straight radiation of pain to his back. Pt just feels generalized burning pain around periumbilical area and left flank area. Pt denies any urinary symptoms Pt denies any diarrhea or constipation Pt denies any blood in stool. Pt states that he work up around 4 am in the morning and noticed the pain Pt denies any nausea, vomiting. Pt has 3/10 pain currently. Pt had one BM since this morning .Pt denies any sick contact. Pt denies any fever, appetite loss. Pt denies any relieve of pain from BM. Pt c/o throbbing type of dull ache left flank area and left lower quadrant insomnia1 Pt has chronic i nsomnia Pt had some hallucination after taking Davigo recently prior to falling asleep and he weaned himself off Davigo. Pt has not been sleeping well. chest pain1 Pt went to [facility] the [facility] due to acute onset of left side chest pain, mild sob and palpitation ,Pt notices sharp left side chest pain, worse with inspiration pt notices mild radiation to left arm Pt denies any diaphoresis. Pt no longer has any above symptoms Pt had negative EKG and D-dimer. Pt has not slept well recently and he has worsening anxiety. He is noncompliant with lexapro Pt never started it Pt also denies any GERD. Pt has more anxiety, especially at night Pt denies any depression or any suicidal or homicidal thought Pt denies any crying spells glucose Pt has mildly hi gh glucose Pt denies any polyuria, polydipsia anemia1 Pt had mild anem ia recently which resolved on recent lab. His iron is ok. Pt has colonoscopy scheduled soon insomnia1 Pt has chronic i nsomnia Pt tried and failed ambien, vistaril in the past. p has been taking dayvigo nightly for the past two years which works well for him. He had some worsening depression with ambien in the past. His insurance does not cover dayvigo at this time Pt states that he sleep well with dayvigo without any side effects. Pt denies any snoring. anemia1 Pt has mild anem ia and high glucose .Pt denies any bleeding Pt denies any polyuria, polydipsia. anxiety1 Pt has chronic a nxiety Pt denies any depression or any suicidal or homicidal thought Pt denies any crying spells. Pt has not tried lexapro yet. physical Pt needs annual physical. Pt has chronic anxiety and he denies any suicidal or homicidal thought Pt denies any crying spells Pt has not been on propranolol for a while Pt is on dayvigo PRn which does ok usually unless when he has worsening anxiety and panic attacks Pt went to ER recently due to vertigo, which resolved. Pt had benign EKG ,pt denies any ear pain Pt denies any tinnitus. anxiety1 Pt has chronic a nxiety with mild depression pt denies any suicidal or homicidal thought Pt denies any crying spells pt feels anxious all the time. Pt has occasional palpitation due to anxiety. pt has a lot of stress at work and he suffers daily anxiety. Pt also has OCD insomnia1 Pt has chronic i nsomnia issue Pt has been struggling with insomnia for many years .Pt feels a lot of anxiety at night Pt has been taking dayvigo nightly and he takes trazodone PRn only. Pt has frequent fragmented sleep but he denies any snoring He denies any difficulty with breathing at night. Pt feels very fatigue and poorly rested upon awakening chronically Pt feels mild fatigue throughout the day HTN Pt states that h e has been checking his bp at home and highest is 140-150/80-90. Pt has been feeling some vague headache, overwhelming anxiety, hand tingling, worsening anxiety lately and he has been checking his bp at home and seems elevated Pt states that he has intermittent vague palpitation and chest pain chronically when he feels anxious and he denies any exertional chest pain. Pt denies any chest pain during walking or running exercise .Pt overall feels very anxious chronically sick Pt c/o acute ons et of sinus congestion, fatigue, mild dry cough, mild sob, mild sore throat since 7days ago .Pt denies any fever Pt denies any GI symptoms. PT denies any dysphagia. Pt does have mild loss of smell but he always has that when he has sinus symptoms. Pt had OTC COVID testing and another nasal swab COVID testing last Friday which were both negative for COVID-19. Pt actually has been feeling better since two days ago. Pt never developed any fever . 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 Pt does not want to take any medication for above yet. allergy1 Pt has multiple allergy to environmental and also to cat and dogs. Pt plans to get either a cat or dog for pet soon glucose1 Pt has borderlin e high gulose. Pt denies any polyuria, ,polydipsia . insomnia Pt has chronic a nd intermittent insomnia Pt states that he thinks that he is mainly anxious which causes him not to able to fall asleep Pt tried trazodone but he breaks it to 1/4 of the 50 mg which did productive sedative effect and helped him falling asleep but he feels slightly poorly focused the next day. Pt aslo tried dayvigo intermittently as well. he had some samples from previous MD. He has not noticed much improvement with dayvigo. Pt has been switching between trazodone and dayvigo. physical Pt needs annual physical. Pt has a very stressful job. Pt has chronic anxiety due to his work and some social issue in general. Pt has mild OCD symptoms as well. pt has rather severe bouts of insomnia chronically Pt states that he usually falls asleep in 30 mins but he wakes up at least twice for unknown reason ane he does have to use bathroom to urinate when he gets up at night and he denies any dribbling, slow stream, difficulty with urination, etc. Pt denies any urinary frequency during the day Pt has urinary symptoms at night for almost 10 years Pt is not sure if he wakes up to urinate or he urinate due to waking up at night. Pt states that he never gets full 7 hours of sleep. He usually can fall back to sleep easily. however, he states that he has frequent cycle of severe insomnia when he lies there all night without falling asleep and he gets up in the morning feeling tired and frustrated. He states that bouts of insomnia usually related to stress and anxiety at work or any uncertainty with work. he states that the severe insomnia comes in waves about 3-4 times per year and lasting 1-2 weeks. Pt states that he usually stare at ceiling all night and thinks about all the stress and responsibility he has to do the next day but unable to fall asleep. he tried ambien, OTC sleep aid, try to practice sleep hygiene with cutting down caffeine, soda, use dark room, etc, but none works. He is afraid of going to his bedroom sometimes due to the insomnia. Pt does feel fatigue in the morning but he usually becomes more alert as the day goes. he also some mild allergy to cat and dog with sneezing and nasal congestion without respiratory issue. He wants to get a pet dog or cat and wants allergy testing. Pt denies any asthma or sob. Pt denies any depression or any suicidal or homicidal thought Pt states that he is generally very anxious person. Instructions Date Instruction Additional Infor mation No Information Assessments Type Assessment Date assessment Essential (primary) hypertension Mental Status Date Cognitive Assessment Orientation - [place] ed to time, place, person, situation.
--- OUTSIDE RECORDS SUMMARY | 2024-04-28 09:48 | XMS_ITS | Clinical Summary ---
Author Organization [facility] Address [address] [place] [address] Care Team Providers Care Batch And Furnace Manager Name Role Phone Issac Roman MD Primary Care Provider [phone] Allergies No known active allergies Medications Dayvigo 5 mg tablet Take 1 tablet by mouth nightly at bedtime 07/14/2021 Active Active Problems Problem Noted Date Diagnosed Date Mixed hyperlipidemia 08/10/2021 Palpitations 05/14/2021 PSVT (paroxysmal supraventricular tachycardia) 0 05/14/2021 Elevated blood pressure reading 05/14/2021 Bradycardia 05/14/2021 Sensorineural hearing loss, unilateral, left ear, with unrestricted hearing on the contralateral side 09/01/2017 Nasal polyps 08/29/2017 Sensorineural hearing loss, asymmetrical 018 Chronic sinusitis 08/29/2017 Nasal septal deviation 08/29/2017 Surgical History Surgery Date Site/Laterality Comments HERNIA REPAIR Medical History Medical History Date Comments Sinusitis Allergic rhinitis Anxiety HL (hearing loss) Arrhythmia Supraventricular tachycardia (HCC) Deviated septum Family History Medical History Relation Name Comments No Known Problems Other Relation Name Status Comments Other Social History Tobacco Use Types Packs/Day Years Used Date Smoking Tobacco: Never Smokeless Tobacco: Never Alcohol Use Standard Drinks/Week Comments Yes 0 (1 standard drink = 0.6 oz pur e alcohol) Personal Safety Answer Date Recorded Getting School Help Needed Not on file 05/17 Sex and Gender Information Value Date Recorded Sex Assigned at Not on file Legal Sex Male 11:30 AM CDT Gender Identity Not on file Sexual Orientation Not on file Obstetrics History Last Filed Vital Signs Vital Sign Reading Time Taken Comments Blood Pressure 120/82 08/10/2021 1:52 PM CDT Pulse 60 08/10/2021 1:52 PM CDT Temperature - - Respiratory Rate 16 08/10/2021 1:52 PM CDT Oxygen Saturation 97% 08/10/2021 1:52 PM CDT Inhaled Oxygen Concentration - - Weight 83.3 kg (183 lb 9.6 oz) 08/10/2021 1:52 P M CDT Height 185.4 cm (6' 1 ) 08/10/2021 1:52 PM CDT Body Mass Index 24.22 08/10/2021 1:52 PM CDT Plan of Treatment Health Maintenance Due Date Last Done Comments Colon Cancer Screening-Colonoscopy 1975 Depression Screening 1975 Hepatitis C Screening 1975 DTaP/Tdap/Td Vaccine (1 - Tdap) 1986 Hepatitis B Screening 1993 Regular Well Visit/Exam 18-64 1993 Influenza Vaccine (#1) 2023 , 01/17/2020 Pneumococcal vaccine <65 Aged Out No longer eligible based on patient's age to complete [place] [address] [facility] H[facility]/PPO Address: [facility] [address] [place] [address] [facility] [employer] [facility]/PP[facility] Address: [address] [address] [place] [address] [place] [address] [facility] [employer] [facility] H[facility]/PPO Address: [address] [address] [place] [address] [place] [address] Care Teams Batch And Furnace Manager Relationship Specialty Start Date End Date Issac Roman MD [address] [place] [address] [place] [address] PCP - General Family Medicine 04/17/21
--- OUTSIDE RECORDS SUMMARY | 2024-04-28 09:48 | XMS_ITS | Referral Summary ---
Author Organization [facility] Address [address] [place] [phone] Care Team Providers Care Family And Consumer Sciences Teacher Name Role Phone Issac Roman MD Primary Care Provider Allergies No known active allergies Medications Dayvigo [...] Chronic sinusitis 08/29/2017 Nasal septal deviation 08/29/2017 Social History Tobacco Use Types Packs/Day Years [...] on file Sexual Orientation Not on file Last Filed Vital Signs Vital Sign Reading [...] 08/10/2021 1:52 PM CDT Plan of Treatment [place] [address] [facility] H[facility]/PPO Address: [address] [employer] [facility] H[facility]/PPO Address: [address] [address] [place] [id number] [facility] [employer] [facility] HMO/PPO Address: [facility] [address] [place] [address] [place] [address] Care Teams Family And Consumer Sciences Teacher Relationship Specialty Start Date End Date Issac Roman MD [address] [place] [address] PCP - General Family Medicine 04/17/21
--- NOTE | 2024-04-28 10:49 | ED.CHESTPAIN ---
HPI - Chest Pain General Chief Complaint: Chest Pain <Amanda Muñoz PA-C - Last Filed: 04/28/24 14:44> Stated Complaint: chest pain <Amanda Muñoz PA-C - Last Filed: 04/28/24 14:44> Time Seen by Provider: 04/28/24 10:49 <Amanda Muñoz PA-C - Last Filed: 04/28/24 14:44> Focused HPI: This is a 49 year old male that presents to the ER for blood pressure issues. Ongoing over the last several weeks. Reports his blood pressures have been in the 150s-160s systolic. Reports he has had chest tightness, headaches, fatigue. Reports today his chest pain was radiating to his back. He is concerned for blood clots. Reports he was recently ill with a cold. Reports he has an appointment with cardiology in may to be evaluated. Reports he was prescribed a calcium channel radha, but has not started this yet. He is not smoker. Denies family history of CAD. GENERAL: Well-appearing, well-nourished, and in no acute distress. HEAD: Normocephalic, atraumatic. CHEST: Clear to auscultation. ?No respiratory distress. HEART: Regular rate and rhythm.? NEURO: ?Alert and oriented x3. Patient screened in triage and initial orders placed.? ?Additional care and disposition to be based upon?diagnostic testing and treatment. <Amanda Muñoz PA-C - Last Filed: 04/28/24 14:44> History of Present Illness HPI narrative: Patient is a 49-year-old gentleman presents emergency department with chief complaint of chest pressure fatigue headaches and high blood pressure. The patient reports that he noticed his blood pressure has been running high he has family history for hypertension does report that he was fairly active has minimal risk factors and saw his primary care provider and was started on a and hypertensive but the pharmacy has not filled it yet should be ready later today. Patient reports that he has had some tightness in his chest and reports that he has felt fatigued as well. The patient states that he was concerned for possibility of a blood clot in his lungs as his had had 1 several months ago. <Skyler Hernandez MD - Last Filed: 04/28/24 13:50> Related Data Home Medications: Home Medications ?Medication ?Instructions ?Recorded ?Confirmed ?Last Taken ?Type doxylamine succinate 25 mg tablet 25 mg PO QHS PRN 05/01/20 07/19/22 Unknown History <Amanda Muñoz PA-C - Last Filed: 04/28/24 14:44> Allergies/Adverse Reactions: Allergies Allergy/AdvReac Type Severity Reaction Status Date / Time No Known Allergies Allergy Mild Verified 04/28/24 13:13 <Amanda Muñoz PA-C - Last Filed: 04/28/24 14:44> Review of Systems Review of Systems: A 10 system review of systems was completed on the patient and is negative except for what is stated in the HPI. Nursing and ancillary documentation was reviewed. <Skyler Hernandez MD - Last Filed: 04/28/24 13:50> [facility] Past Medical History Medical History: Medical History Insomnia Anxiety Chronic sinusitis <Amanda Muñoz PA-C - Last Filed: 04/28/24 14:44> Surgical History Surgical History: Surgical History H/O bilateral inguinal hernia repair <Amanda Muñoz PA-C - Last Filed: 04/28/24 14:44> Family History Family History: Family History Father Hypertension Depression Heart disease Mother Depression Sibling Depression Cerebrovascular accident Grandparent Cancer Grandparent Hypertension Depression <Amanda Muñoz PA-C - Last Filed: 04/28/24 14:44> Social History Social History: Social History Smoking status: Never smoker Alcohol intake: never Substance use: never Lack of Transportation: No Current Housing: I Have Housing Concerned About Future Housing: No Difficulty Paying Gas/Electric Bills: No Difficulty Paying for Meds: No Currently Unemployed: No Education: Master's Degree or Higher Difficulty w/ Childcare or Family Care: No <Amanda Muñoz PA-C - Last Filed: 04/28/24 14:44> Exam Narrative: GENERAL: Well-appearing, well-nourished, and in no acute distress. HEAD: Normocephalic, atraumatic. EYES: PERRLA and EOMI. ENT: Nares clear, no rhinorrhea or epistaxis. Mucous membranes moist. NECK: Supple. CHEST: Clear to auscultation. No respiratory distress. HEART: Regular rate and rhythm. No murmur heard. Normal peripheral pulses. ABDOMEN: Soft, nontender, nondistended, normal active bowel sounds. EXTREMITIES: Normal range of motion. No edema. SKIN: Warm, dry, no rash. NEURO: No focal deficits. Alert and oriented x3. PSYCH: Normal mood and affect. <Skyler Hernandez MD - Last Filed: 04/28/24 13:50> Course Vital Signs Vital signs: Vital Signs Temperature 97.6 F 04/28/24 09:04 Pulse Rate 82 04/28/24 09:04 Respiratory Rate 16 04/28/24 09:04 Blood Pressure 147/92 H 04/28/24 09:04 Pulse Oximetry 98 04/28/24 09:04 Oxygen Delivery Room Air 04/28/24 09:04 Temperature 97.6 F 04/28/24 09:04 Pulse Rate 62 04/28/24 14:27 Respiratory Rate 12 04/28/24 14:27 Blood Pressure 147/98 H 04/28/24 14:27 Pulse Oximetry 97 04/28/24 14:27 Oxygen Delivery Autopap 04/28/24 13:11 <Amanda Muñoz PA-C - Last Filed: 04/28/24 14:44> Vital Signs Temperature 97.6 F 04/28/24 09:04 Pulse Rate 82 04/28/24 09:04 Respiratory Rate 16 04/28/24 09:04 Blood Pressure 147/92 H 04/28/24 09:04 Pulse Oximetry 98 04/28/24 09:04 Oxygen Delivery Room Air 04/28/24 09:04 Temperature 97.6 F 04/28/24 09:04 Pulse Rate 62 04/28/24 14:27 Respiratory Rate 12 04/28/24 14:27 Blood Pressure 147/98 H 04/28/24 14:27 Pulse Oximetry 97 04/28/24 14:27 Oxygen Delivery Autopap 04/28/24 13:11 <Skyler Hernandez MD - Last Filed: 04/28/24 13:50> MDM - Chest Pain MDM Narrative Medical decision making narrative: Differential diagnosis includes ACS, PE, pneumonia, EKG showed no acute ischemic changes Use troponin was negative on 0 hour and 3 hour troponin negative, D-dimer was negative 7 chest x-ray showed no focal infiltrate <Amanda Muñoz PA-C - Last Filed: 04/28/24 14:44> Differential diagnosis includes ACS, PE, pneumonia, EKG showed no acute ischemic changes Use troponin was negative on 0 hour and 3 hour Hydrea D-dimer was negative 7 chest x-ray showed no focal infiltrate <Skyler Hernandez MD - Last Filed: 04/28/24 13:50> Lab Data Result diagrams: 04/28/24 09:16 04/28/24 09:16 <Amanda Muñoz PA-C - Last Filed: 04/28/24 14:44> Labs: Lab Results 04/28/24 04/28/24 Range/Units 09:16 12:56 WBC 6.1 (4.5-10.0) K/mm3 RBC 4.81 (4.6-6.20) M/mm3 Hgb 14.1 (14.0-18.0) g/dL Hct 42.2 (42.0-52.0) % MCV 87.7 (80-100) fl MCH 29.3 (26-34) pg MCHC 33.4 (32-36) g/dl RDW 12.7 (11.5-14.5) % Plt Count 255 (150-375) k/mm3 MPV 9.1 (7.4-10.4) fl Immature Gran % (Auto) 0.2 (0-0.5) % Neut % (Auto) 45.9 (45.5-73.1) % Lymph % (Auto) 39.8 (18.3-44.2) % [place] % (Auto) 7.7 (2.6-8.5) % Eos % (Auto) 5.7 H (0-4.4) % Baso % (Auto) 0.7 (0.2-1.2) % Lymph # (Auto) 2.43 (0.9-3.2) K/mm3 [place] # (Auto) 0.5 (0.1-0.6) K/mm3 Eos # (Auto) 0.4 H (0-0.3) K/mm3 Baso # (Auto) 0.0 (0.0-0.1) K/mm3 Abs Immat Gran (auto) 0.01 (0.00-0.031) K/mm3 Absolute Neuts (auto) 2.8 (1.3-6.7) K/mm3 Absolute Nucleated RBC 0.000 (0.0-0.012) K/mm3 Nucleated RBC % 0.0 (0.0-0.2) % PT 13.7 (11.1-14.7) Seconds INR 1.0 APTT 32.8 (22.3-36.8) Seconds D-Dimer < 0.27 (<0.48) ug/mL Sodium 141 (137-145) mmol/L Potassium 4.4 (3.4-5.0) mmol/L Chloride 105 (98-107) mmol/L Carbon Dioxide 27 (22-30) mmol/L Anion Gap 9 (4-12) mmol/L BUN 24 H (9-20) mg/dL Creatinine 0.91 (0.7-1.3) mg/dL Estim Creat Clear Calc 95 ml/min Estimated GFR > 60 (59 - ) Glucose 93 (65-110) mg/dL Calcium 9.4 (8.4-10.2) mg/dL Total Bilirubin 0.8 (0.2-1.3) mg/dL AST 23 (17-59) U/L ALT 25 (6-50) U/L Alkaline Phosphatase 54 (38-126) U/L Troponin I < 0.012 < 0.012 (0.000-0.034) ng/mL Total Protein 8.0 (6.3-8.2) g/dL Albumin 4.6 (3.5-5.1) g/dL Lipase 102 (23-300) U/L TSH (Reflex) 1.700 (0.465-4.68) uIU/mL <Amanda Muñoz PA-C - Last Filed: 04/28/24 14:44> Lab Results 04/28/24 04/28/24 Range/Units 09:16 12:56 WBC 6.1 (4.5-10.0) K/mm3 RBC 4.81 (4.6-6.20) M/mm3 Hgb 14.1 (14.0-18.0) g/dL Hct 42.2 (42.0-52.0) % MCV 87.7 (80-100) fl MCH 29.3 (26-34) pg MCHC 33.4 (32-36) g/dl RDW 12.7 (11.5-14.5) % Plt Count 255 (150-375) k/mm3 MPV 9.1 (7.4-10.4) fl Immature Gran % (Auto) 0.2 (0-0.5) % Neut % (Auto) 45.9 (45.5-73.1) % Lymph % (Auto) 39.8 (18.3-44.2) % [place] % (Auto) 7.7 (2.6-8.5) % Eos % (Auto) 5.7 H (0-4.4) % Baso % (Auto) 0.7 (0.2-1.2) % Lymph # (Auto) 2.43 (0.9-3.2) K/mm3 [place] # (Auto) 0.5 (0.1-0.6) K/mm3 Eos # (Auto) 0.4 H (0-0.3) K/mm3 Baso # (Auto) 0.0 (0.0-0.1) K/mm3 Abs Immat Gran (auto) 0.01 (0.00-0.031) K/mm3 Absolute Neuts (auto) 2.8 (1.3-6.7) K/mm3 Absolute Nucleated RBC 0.000 (0.0-0.012) K/mm3 Nucleated RBC % 0.0 (0.0-0.2) % PT 13.7 (11.1-14.7) Seconds INR 1.0 APTT 32.8 (22.3-36.8) Seconds D-Dimer < 0.27 (<0.48) ug/mL Sodium 141 (137-145) mmol/L Potassium 4.4 (3.4-5.0) mmol/L Chloride 105 (98-107) mmol/L Carbon Dioxide 27 (22-30) mmol/L Anion Gap 9 (4-12) mmol/L BUN 24 H (9-20) mg/dL Creatinine 0.91 (0.7-1.3) mg/dL Estim Creat Clear Calc 95 ml/min Estimated GFR > 60 (59 - ) Glucose 93 (65-110) mg/dL Calcium 9.4 (8.4-10.2) mg/dL Total Bilirubin 0.8 (0.2-1.3) mg/dL AST 23 (17-59) U/L ALT 25 (6-50) U/L Alkaline Phosphatase 54 (38-126) U/L Troponin I < 0.012 < 0.012 (0.000-0.034) ng/mL Total Protein 8.0 (6.3-8.2) g/dL Albumin 4.6 (3.5-5.1) g/dL Lipase 102 (23-300) U/L TSH (Reflex) 1.700 (0.465-4.68) uIU/mL <Skyler Hernandez MD - Last Filed: 04/28/24 13:50> Imaging Data Radiologist's impression: ITS Impressions Chest X-Ray 04/28/24 10:03 IMPRESSION: 1. No acute cardiopulmonary disease. <Amanda Muñoz PA-C - Last Filed: 04/28/24 14:44> Critical Care Time Critical Care Time Critical Care Time: No <Amanda Muñoz PA-C - Last Filed: 04/28/24 14:44> Discharge Plan Discharge Clinical Impression: Chest pain Qualifiers: Chest pain type: unspecified Qualified Code(s): R07.9 - Chest pain, unspecified <Amanda Muñoz PA-C - Last Filed: 04/28/24 14:44> Patient Disposition: Home, Self-Care <Amanda Muñoz PA-C - Last Filed: 04/28/24 14:44> Condition: Stable <Amanda Muñoz PA-C - Last Filed: 04/28/24 14:44> Instructions: Antibiotic Form, Chest Pain (ED) <Amanda Muñoz PA-C - Last Filed: 04/28/24 14:44> Patient Language: Greenlandic <Amanda Muñoz PA-C - Last Filed: 04/28/24 14:44> Prescriptions: No Action prednisone 10 mg tablet 10 mg PO DAILY Qty: 7 0RF Rx Instructions: Take in am, days 1-7 prednisone 5 mg tablet 5 mg PO DAILY Qty: 7 0RF Rx Instructions: Days 8-14, take in am budesonide 0.25 mg/2 mL suspension for nebulization 0.25 mg irrigation BID Qty: 120 0RF Rx Instructions: 2ml/one ampule in each irrigation bottle, irrigate with 2 bottle per day doxylamine succinate 25 mg tablet 25 mg PO QHS PRN fluticasone propionate [Flonase Allergy Relief] 50 mcg/actuation spray,suspension 2 spray intranasal BID Qty: 16 0RF Rx Instructions: administer into each nostril <Amanda Muñoz PA-C - Last Filed: 04/28/24 14:44> Follow-up/Referrals: Issac Roman MD [Primary Care Provider] - <Amanda Muñoz PA-C - Last Filed: 04/28/24 14:44> Time of Disposition: 13:49 <Amanda Muñoz PA-C - Last Filed: 04/28/24 14:44> 13:49 <Skyler Hernandez MD - Last Filed: 04/28/24 13:50>
[2024-04-28 12:56] LABS: D Dimer < 0.27 ug/mL (<0.48)
--- OUTSIDE RECORDS SUMMARY | 2024-04-28 12:58 | XMS_ITS | Clinical Summary ---
Author Organization [facility] Address [address] [place] [phone] Care Team Providers Care Staff Software Engineer Name Role Phone Issac Roman MD Primary [...] patient's age to complete this [place] [address] [facility] [place] [address] [facility] [place] [address] Care Teams Staff Software Engineer Relationship Specialty Start Date End Date Issac Roman MD [address] [place] [address] [place] [address] PCP - General Family Medicine 04/17/21
--- OUTSIDE RECORDS SUMMARY | 2024-04-28 12:58 | XMS_ITS | Continuity of Care Document ---
Author Organization [facility] Address [address] [facility] [place] [address] Phone Care Team Providers Care Computer Aided Drafter Name Role Phone Issac Roman MD Unavailable [...] Copied on Encounter OFFICE/OUTPA TIENT VISIT, EST [facility], [facility] [place], [address], tel:[phone] [facility] HTN (chief complaint) Essential (primary) hypertension 5 Abel Davenport. [address] [employer] [facility] [place], [address] , [place]. tel:[phone] PREV VISIT, EST, AGE 40-64 [facility], [address] [place], [place], [address], [place] tel:[phone] [facility] physical (chief complaint) Encounter for general adult medical exam w abnormal findingsEssential (primary) hypertensionHypergl ycemiaObstructive sleep apnea hypopneaChronic sinusitis Fe 5 Abel Montemayor [address], [place], [place], [address] , [place]. [phone] PREV VISIT, EST, AGE 40-64 [facility], [address], [place], [place], [address], [place] tel:[phone] [facility] anxiety1 (chief complaint) Encounter for general adult medical examination without abnormal findings 3 Abel Montemayor [address], [address], [place], [place], [address] , [place]. tel:[phone] OFFICE/OUTPA TIENT VISIT, EST [facility], [address], [place], [place], [address], [place] tel:[phone] [facility] abdominal pain1 (chief complaint) insomnia1 (chief complaint) Generalized abdominal painGeneralized Anxiety DisorderPrimary insomnia 3 Abel Montemayor [address], [address], [place], [place], [address] , [place]. tel:[phone] OFFICE/OUTPA TIENT VISIT, EST [facility], [address], [place], [place], [address], [place] tel:[phone] [facility] anemia1 (chief complaint) glucose (chief complaint) chest pain1 (chief complaint) insomnia1 (chief complaint) HyperglycemiaAnemia Generalized Anxiety DisorderPrimary insomniaPalpitation s 3 Abel Montemayor [address], [address], [place], [place], [address] , [place]. tel:[phone] OFFICE/OUTPA TIENT VISIT, EST [facility], [address], [place], [place], [address], [place] tel:[phone] [facility] insomnia1 (chief complaint) anxiety1 (chief complaint) anemia1 (chief complaint) Generalized Anxiety DisorderPrimary insomniaEncounter for screening for malignant neoplasm of colonAnemiaHypergly cemia 3 Abel Montemayor [address], [address], [place], [place], [address] , . tel:[phone] PREV VISIT, EST, AGE 40-64 [facility], [address] [place], [address], [place] [phone] [facility] physical (chief complaint) Encounter for general adult medical examination without abnormal findings 2 Abel Montemayor [address], [address], [place], [place], [address] , [place]. tel:[phone] OFFICE/OUTPA TIENT VISIT, [facility], [address] [place], [address], [place] tel:[phone] [facility] sick (chief complaint) HTN (chief complaint) insomnia1 (chief complaint) anxiety1 (chief complaint) InsomniaEssential (primary) hypertensionViral infectionGeneralize d Anxiety DisorderFatigue 1 Abel Montemayor [address], [address], [place], [place], [address] , [place]. tel:[phone] OFFICE/OUTPA TIENT VISIT, EST [facility], [address] [place], [address], [place] tel:[phone] [facility] insomnia1 (chief complaint) glucose1 (chief complaint) allergy1 (chief complaint) anxiety1 (chief complaint) InsomniaGeneralized Anxiety DisorderHyperglycem iaOther allergy status other than to biological substance 1 Abel Montem[address]or [address], [place], [place], [address] , [place]. tel:[phone] PREV VISIT, NEW, AGE 40-64 [facility], [address] [place], [address], [place] tel:[phone] [facility] physical (chief complaint) Encntr for general adult medical exam w/o abnormal findings May- 1 Abel Davenport. [address], [address], [place], [place], [address] , [place]. tel:[phone] Family History Family Member Type Diagnosis Age At Onset Sister Problem anxiety Father Problem Coronary artery disease 50 Brother Problem Hypertension Mother Problem anxiety Father Problem Hypertension Mother Problem Depression Payers Payer name Insurance type Covered democrat ID [employer] [facility] [id number] Social History Type Description Quantity Date Captured [...] other complaints .his abdominal pain completely resolved. abdominal pain1 Pt c/o acute ons et [...] area and left lower quadrant insomnia1 Pt no longer has anxiety or insomnia and he has not been taking sleeping aid. Pt also never tried SSRi and he is doing ok now. Pt denies any suicidal or homicidal thought Pt denies any crying spells Pt also never did sleep study He does not feel that he has sleep apnea anemia1 Pt had mild anem ia recently which resolved on recent lab. His iron is ok. Pt has colonoscopy scheduled soon glucose Pt has mildly hi gh glucose Pt denies any polyuria, polydipsia chest pain1 Pt went to Er ov [...] homicidal thought Pt denies any crying spells insomnia1 Pt has chronic i nsomnia Pt had some hallucination after taking Davigo recently prior to falling asleep and he weaned himself off Davigo. Pt has not been sleeping well. anxiety1 Pt has chronic a nxiety Pt denies any depression or any suicidal or homicidal thought Pt denies any crying spells. Pt has not tried lexapro yet. anemia1 Pt has mild anem ia and high glucose .Pt denies any bleeding Pt denies any polyuria, polydipsia. insomnia1 Pt has chronic i nsomnia Pt [...] any side effects. Pt denies any snoring. physical Pt needs annual physical. Pt has [...] any ear pain Pt denies any tinnitus. sick Pt c/o acute ons et of [...] ago. Pt never developed any fever . HTN Pt states that h e has [...] exercise .Pt overall feels very anxious chronically insomnia1 Pt has chronic i nsomnia issue [...] Pt feels mild fatigue throughout the day anxiety1 Pt has chronic a nxiety with mild depression pt denies any suicidal or homicidal thought Pt denies any crying spells pt feels anxious all the time. Pt has occasional palpitation due to anxiety. pt has a lot of stress at work and he suffers daily anxiety. Pt also has OCD insomnia1 Pt has chronic a nd intermittent insomnia [...] has been switching between trazodone and dayvigo. glucose1 Pt has borderlin e high gulose. Pt denies any polyuria, ,polydipsia . allergy Pt has multiple allergy to environmental and also to cat and dogs. Pt plans to get either a cat or dog for pet soon anxiety1 Pt has mild bi report developer beatris anxiety and depression pt denies any suicidal or homicidal thought Pt denies any crying spells. Pt does not want to take any medication for above yet. physical Pt needs annual physical. Pt [...] Mental Status Date Cognitive Assessment Orientation - Ray ed to time, place, person, situation.
--- OUTSIDE RECORDS SUMMARY | 2024-04-28 12:58 | XMS_ITS | Referral Summary ---
Author Organization [facility] Address [address] [place] [address] Care Team Providers Care Airline Attendant Name Role Phone Issac Roman MD Primary Care Provider [phone] Allergies No known active allergies Medications Dayvigo [...] Treatment [place] [address] [facility] H[facility]/PPO Address: [address] [facility] HMO/PPO Address: [address] [address] [place] [id number] [facility] [employer] [facility] H[facility]/PPO Address: [facility] [address] [place] [address] [place] [address] Care Teams Airline Attendant Relationship Specialty Start Date End Date Issac Roman MD [address] [place] [address] PCP - General Family Medicine 04/17/21
--- NOTE | 2024-04-28 13:02 | ECG_ITS ---
Test Date: 2024-04-28 13:05:17 Measurements Intervals [place] Rate: 54 P: 59 IN: 149 QRS: 58 QRSD: 110 T: 42 QT: 430 QTc: 409 Interpretive Statements SINUS BRADYCARDIA BASELINE ARTIFACT- I, III, AVL, AVF BORDERLINE ECG Compared to ECG 04/28/2024 09:11:09 HEART RATE HAS DECREASED Electronically Signed On 04-28-2024 13:49:00 AIRPORT SCREENER by Neno Vivar D.O.
[2024-04-28 13:08] VITALS: BP 138/88; PULSE 54; RESP 12; O2SAT 97
[2024-04-28 13:11] VITALS: O2SAT 98
[2024-04-28 13:27] LABS: Troponin I < 0.012 ng/mL (0.000-0.034)
[2024-04-28 14:27] VITALS: BP 147/98; PULSE 62; RESP 12; O2SAT 97
== END 2024-04-28 14:51 | disposition home or self-care (01) ==
PROVIDERS: Emergency Medicine; Physician Assistant; Emergency Provider Emergency Medicine; PCP Emergency Medicine
DX: R07.9 Chest pain, unspecified (principal); F41.9 Anxiety disorder, unspecified
CPT/HCPCS: 36415; 71046; 80053; 83690; 84443; 84484; 85025; 85380; 85610; 85730; 93005; 99284